=== PATIENT | female | born 1945 | race Caucasian/White ===

== ENCOUNTER → 2019-06-30 | Outpatient (CLI) | payer MEDICARE, MEDICAID ==
[~2019-06-30] MED LIST: AMLO5TAB4 PO; ASPI-496 PO; ASPI-650 PO; FENO145T32 PO; HYDR12.547 PO; INSU100C5 SQ-INSULIN; LEVO750T26 PO; LISI-167 PO; LISI-170 PO; METO-93 PO; METO1TAB28 PO; NPH,100V SQ-INSULIN; SIMV20TA PO
== END | disposition home or self-care (01) ==
LOC: CFH 14:57
PROVIDERS: ATTEND Internal Medicine Cardiovascular Disease
DX: I08.0 Rheumatic disorders of both mitral and aortic valves (principal); I10 Essential (primary) hypertension; E78.5 Hyperlipidemia, unspecified; E11.9 Type 2 diabetes mellitus without complications; R93.1 Abnormal findings on diagnostic imaging of heart and coronary circulation; Z87.891 Personal history of nicotine dependence
CPT/HCPCS: 93306

== ENCOUNTER 2021-02-26 06:15 | Day surgery (SDC) | payer MEDICARE, MEDICAID ==
[~2021-02-26] VITALS: Ht 154.9 cm; Wt 55.0 kg
[~2021-02-26 06:15] MED LIST changes: +ASPI-1026 PO; -ASPI-650 PO
[2021-02-26] MEDS ORDERED: SODIUM CHLORIDE 0.9% 1,000 ML IV SCH (06:30)
[2021-02-26] MEDS ORDERED: LEVO75TA5 PO (06:51)
[2021-02-26] MEDS ORDERED: FURO-93 PO (06:51)
[2021-02-26] MEDS ORDERED: LISI2.5T PO (06:51)
[2021-02-26] MEDS ORDERED: ATOR40TA PO (06:51)
[2021-02-26] MEDS ORDERED: RANO500T2 PO (06:51)
[2021-02-26] MEDS ORDERED: ASPI81TA45 PO (06:51)
[2021-02-26] MEDS ORDERED: LINA5TAB PO (06:51)
[2021-02-26] MEDS ORDERED: CHOL10003 PO (06:51)
[2021-02-26] MEDS ORDERED: SENN-190 PO (06:51)
[2021-02-26] MEDS ORDERED: CARV3.122 PO (06:51)
[2021-02-26] MEDS ORDERED: SODIUM CHLORIDE 0.9% 1,000 ML IV ONE (07:00)
[2021-02-26] MEDS ORDERED: PROPOFOL 10 MG/ML, 20ML ONE (10:03)
== END 2021-02-26 10:19 | disposition home or self-care (01) ==
LOC: CACL 06:15
PROVIDERS: ATTEND Internal Medicine Cardiovascular Disease
DX: I08.1 Rheumatic disorders of both mitral and tricuspid valves (principal); E11.22 Type 2 diabetes mellitus with diabetic chronic kidney disease; I12.9 Hypertensive chronic kidney disease with stage 1 through stage 4 chronic kidney disease, or unspecified chronic kidney disease; N18.9 Chronic kidney disease, unspecified; I25.2 Old myocardial infarction; I42.9 Cardiomyopathy, unspecified; E78.5 Hyperlipidemia, unspecified; Z20.822 Contact with and (suspected) exposure to COVID-19; Z79.82 Long term (current) use of aspirin; Z79.899 Other long term (current) drug therapy; Z88.0 Allergy status to penicillin
CPT/HCPCS: 87635; 93312; 93321; 93325; J2704